=== PATIENT | male | born 1975 | race Caucasian/White ===

== ENCOUNTER 2017-10-26 06:33 | Day surgery (SDC) | payer OTHER ==
[~2017-10-26] VITALS: Ht 175.3 cm; Wt 90.7 kg
--- NOTE | ~2017-10-26 | OP ---
PATIENT NAME: NICHOLE JAIMES MEDICAL RECORD: [id number] :71 LOCATION:[facility] ADMISSION DATE: SURGEON: ANGELIQUE RENTERIA MD DATE OF OPERATION: 10/26/2017 PREOPERATIVE DIAGNOSIS: Subcutaneous right facial mass, likely a lipoma. POSTOPERATIVE DIAGNOSIS: Subcutaneous facial mass, a sebaceous cyst. PROCEDURE: Excisional biopsy of right facial mass. SURGEON: Angelique Renteria MD. SUPERVISOR BLUEPRINTING AND PHOTOCOPY: None. BLOOD LOSS: Minimal. ANESTHESIA: General. COMPLICATIONS: None. I saw the patient preoperatively. We discussed the risks, possible complications, and alternatives to the procedure including the possible need for 2 separate incisions, possibility of scarring, possibility of facial deformity, possibility of recurrence of the mass, and possibility of nerve injury. OPERATIVE COURSE: The patient was conveyed to the operating room electively on 10/26/2017. General anesthesia was induced by the anesthesia staff. The patient's face was sterilely prepped and draped. An incision was accomplished in the right nasolabial fold. I was then able to push the cystic mass medially. I was able to identify the mass. I began to dissect the mass out from surrounding tissue and it ruptured. A large amount of keratin debris was present. It did not appear to be infected. I expressed all the keratin debris that I could. I excised all of the cystic structure that I could in a piecemeal fashion. Interestingly, there was not a central pore overlying the mass. I irrigated in the subcutaneous pocket. The subdermis was approximated with multiple interrupted 3-0 Vicryls. The skin was approximated with a running intracuticular 4-0 Vicryl. Benzoin and Steri-Strips were applied. The patient was then extubated and conveyed to the post-anesthesia care unit where he was in stable condition. There is no need for him to follow up with me in the office unless he develops a complication related to this operative procedure. I want to dismiss him back to the care home with Ultram as well as Keflex. TRANSINT:[id number] Voice Confirmation ID: [id number] DOCUMENT ID: [id number] OPERATIVE REPORT [id number] NICHOLE JAIMES ANGELIQUE RENTERIA MD at 1158 CC: BENITO MACK and KSENIA TOBAR MD [id number] DICTATION DATE: 10/26/17 4416 [employer] OFFICER: 10/26/17 1441 [facility] 10/26/17 [facility] [address] [place] [address]
[2017-10-26] MEDS ORDERED: PRINIVIL20 MG (07:31)
[2017-10-26 07:35] VITALS: BP 129/74; Ht 175.3 cm; Wt 90.7 kg
[2017-10-26 08:05] LABS: HEMATOCRIT 42.4 % (42.0-54.0); HEMOGLOBIN 14.3 g/dL (13.5-17.5); MCH 30.6 pg (26.0-34.0); MCHC 33.7 g/dL (31.0-37.0); MCV 90.6 fL (80.0-100.0); MEAN PLATELET VOLUME 10.5 fL (7.4-10.4); RBC 4.68 10x6/uL (4.20-6.10); RDW 12.4 % (11.5-14.5); WBC 7.3 10x3/uL (4.8-10.8)
== END 2017-10-26 12:45 | disposition home or self-care (01) ==
LOC: D.OPS 06:33
PROVIDERS: Anesthesiology
DX: D17.0 Benign lipomatous neoplasm of skin and subcutaneous tissue of head, face and neck (principal); Z79.891 Long term (current) use of opiate analgesic; Z79.899 Other long term (current) drug therapy